=== PATIENT | male | born 1985 | race African-American/Black ===

== ENCOUNTER 2018-10-19 11:15 | Observation (INO) ==
[~2018-10-19 11:15] MED LIST: CEFAZOLIN 1000MG 1,000 MG/7.5 ML SYR IV SCH; LR 15ML/HR IV SCH; PATIENT'S ALLERGY INFO NEEDS ENTERED SCH
[2018-10-19] MEDS ORDERED: CEFAZOLIN 1,000 MG/7.5 ML IV PUSH IV ONE (12:15)
[2018-10-19] MEDS ORDERED: LIDOCAINE HCL 1% 20 ML VIAL ONE ×2 (12:51→13:55)
[2018-10-19] MEDS ORDERED: BUPIVACAINE 0.25% 30 ML VIAL ONE (12:52)
[2018-10-19] MEDS ORDERED: BACITRACIN INJ 50,000 UNIT VIAL ONE (12:52)
--- NOTE | 2018-10-19 12:55 | History & Physical Bridge Note ---
Date of Service October 19, 2018 History & Physical Bridge Note I have examined the patient, reviewed the History & Physical and in the interval since the performance of the History & Physical I have noted the following changes of clinical significance: no changes noted
--- NOTE | 2018-10-19 12:56 | Pre Anesthesia Assessment ---
Date of Service October 19, 2018 Pre Sedation Assessment Vital Signs Temp Pulse Resp BP Pulse Ox 10/19/18 11:40 36.7 C 62 18 142/88 H 100 Cardiovascular + regular rate Respiratory + respiratory effort normal Pre-Sedation Airway Assessment Smoking Status: Current every day smoker Hx Sleep Apnea: No Hx Difficult Intubation: No Short, Thick Neck: No Thyromental Distance: > or= 3.5 Finger Breadths Oral Cavity: + WNL Mallampati Class: III ASA: ASA3 Procedure Planning Contraindications for Sedation: none Current Medications Reviewed: Yes Notes The planned sedation has been discussed with the patient. Informed Consent was obtained. I have identified the patient, determined the appropriateness of sedation and have assessed the patient immediately prior to the procedure. All medicine(s) and interventions are by my order.
[2018-10-19] MEDS ORDERED: fentaNYL citrate 100 MCG/2 ML VIAL ONE ×2 (13:06→13:33)
[2018-10-19] MEDS ORDERED: MIDAZOLAM HCL 5 MG/ML 1 ML VIAL ONE ×2 (13:06→13:44)
[2018-10-19] MEDS ORDERED: MoRPHine SULFATE 2 MG/ML CARP IV PRN (14:56)
[2018-10-19] MEDS ORDERED: OXYCODONE HCL IR 5 MG TAB (IMMEDIATE RELEASE) PO PRN (14:56)
--- NOTE | 2018-10-19 14:56 | Post Operative Brief Note ---
Cardiology Brief Post Op Date of Surgery October 19, 2018 Pre & Post Diagnosis Operation Date: 10/19/18 13:00 <No data on this case meets the specified criteria> Procedure Implant of S-ICD under conscious sedation Thread Checker John Coe MD Dado Operator none Estimated Blood Loss 20 Findings Consistent with Post-Op Diagnosis Anesthesia Type RN Sedation Disposition Accompanied Patient To Recovery: No Disposition: PCU Overlapping Procedure I was immediately available: during the entire case.
--- NOTE | 2018-10-19 16:10 | Procedure Note ---
Procedure Note Date of Service October 19, 2018 Note Procedure performed: Implantation of subcutaneous ICD. Defer ablation threshold testing. Staff physician intensivist: John Coe MD Indication: The patient is a 32-year-old gentleman recently diagnosed with hypertrophic cardiomyopathy. Based on his septal dimension, he was felt to be at high risk for sudden cardiac and advised to undergo ICD implantation as primary prophylaxis against sudden cardiac . Procedure detail: The patient was informed of the risks benefits and alternatives to the intended procedure. He understood and wished to proceed. He was taken to the electrophysiology suite in a fasting state. A preoperative antibiotic was administered. Conscious sedation was a sliver cutter per protocol and the patient was monitored electric cardiographic throughout today's procedure. The left flank and chest area were prepped and draped in the usual sterile fashion and area in the mid axillary line left lateral to the sternum was then anesthetized using subcutaneous ministration of lidocaine and Marcaine solution. Incision was made at the site and carried down to the muscle layer. The device pocket was made in the subcutaneous tissues. Dissection was performed with both scalpel and electrocautery. Electrocautery was employed for hemostasis. At this point a second area was anesthetized just inferior to the xiphoid process. Ministration of lidocaine and Marcaine at the site was performed prior to incision with sharp dissection. This incision was carried down to the pre- abdominal fascia using electrocautery. Hemostasis was also achieved using electrocautery. A tunneling tool was then used in order to tunnel lead from the subxiphoid pocket to the chest wall pocket. A second tunneling tool was used to advance the lead on top of the sternum and aligned approaching the sternal notch. The lead was then sutured into place in the subxiphoid pocket using nonabsorbable suture. Both pockets were irrigated with an antibiotic solution. The lead was then attached to the ICD device. The leads and device were placed in the lateral chest pocket this pocket was subsequently closed with 3 layers of absorbable suture. The subxiphoid pocket was also closed with 3 layers of absorbable suture. Steri-Strips and sterile dressings were applied prior to conclusion of the case. Before conclusion of the case defer ablation threshold testing was performed. On initial induction of ventricular fibrillation using 50 Hz was successfully terminated with 65 J at 44 ohms. The patient tolerated the procedure well. There were no immediate complications Equipment used: New pulse generator: Linker Up: [employer]. Model #A219 serial #[id number] Impression: Successful implantation of subcutaneous ICD with successful defibrillation threshold testing. Coding
[2018-10-19] MEDS: IBUPROFEN 800 MG TAB PO PRN ×2 (17:01→21:16)
[2018-10-19] MEDS: CEFAZOLIN 1000MG 1,000 MG/7.5 ML SYR IV SCH (21:20)
[2018-10-19] MEDS: ACETAMINOPHEN 325 MG TAB PO PRN (23:41)
[2018-10-20] MEDS: CEFAZOLIN 1000MG 1,000 MG/7.5 ML SYR IV SCH (05:47)
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
[2018-10-20] MEDS: ACETAMINOPHEN 325 MG TAB PO PRN (08:52)
--- NOTE | 2018-11-02 10:24 | Discharge Summary ---
Date of Service November 02, 2018 Admission HPI Patient has history of hypertrophic cardiomyopathy and presented for implantation of a defibrillator for primary prevention against sudden cardiac Principal Diagnosis Principal Diagnosis Hypertrophic cardiomyopathy Discharge Exam The implant site(s) are without drainage. No significant hematoma. Discharge Data Allergies Allergy/AdvReac Type Severity Reaction Status Date / Time No Known Drug Allergies Allergy Verified 10/19/18 11:39 Procedures Performed Operation Date: 10/19/18 13:00 Actual Procedures p Subq ICD Insertion and Testing - Tim Coe MD Ordered Studies 10/19/18 07:00 EP Lab Images for PACS ONCE Hospital Course (1) Hypertrophic cardiomyopathy: On the day of admission the patient underwent implantation of subcutaneous defibrillator. The procedure itself was uncomplicated. The following morning the patient was feeling well there is no evidence of complication. Total Time Total Time Spent Total Time Spent (In Minutes): 10 Total Time Includes: Examination of the Patient, Discharge Planning and Medication Reconciliation Discharge Plan Discharge Items Patient Disposition: [facility] Reason For Visit: SUB Q PACER Discharge Diagnosis: Hypertrophic CM Discharge Goals: Therapeutic intervention Activity: Resume your previous activity Lifting: None Bathing: Keep incision dry Bathing Comment: Keep incision dry for 3-5 days Exercise/Sports: None Non-emergency contact: Primary Care Provider Call non-emergency contact if: you have a fever, your wound has increased drainage and your wound pain has increased Follow-up/Referrals: Ezra PASCUAL [Primary Care Provider] - Diet: Regular Addtl Provider Instructions: none Krames/Other Patient Handouts: ICD, ICD Living W, Pacemaker Admission Data Admit Date/Time: 10/19/18 13:55 Attending Provider: Tim Coe Admit Provider: Tim Coe Primary Care Provider: Ezra PASCUAL Service: Telemetry Other Interventions: Discharge Summary Assessment (RN) Last Done: 10/20/18 10:27 DC Date/Time DO NOT enter until pt leaves facility: 10/20/18 13:11
== END 2018-10-20 13:11 ==
LOC: ASU 11:15 → 2S 11:15